=== PATIENT | male | born 1985 | race African-American/Black ===

== ENCOUNTER 2024-03-31 15:41 | Emergency (ER) | payer SELFPAY ==
[~2024-03-31] VITALS: Ht 177.8 cm; Wt 80.0 kg
[2024-03-31 15:45] VITALS: BP 128/72; PULSE 84; RESP 16; TEMP 98.6; O2SAT 100
== END 2024-03-31 17:41 | disposition left against medical advice (07) ==
LOC: ER 15:41
DX: S61.411A Laceration without foreign body of right hand, initial encounter (principal); Z53.21 Procedure and treatment not carried out due to patient leaving prior to being seen by health care provider; X58.XXXA Exposure to other specified factors, initial encounter; Y93.89 Activity, other specified; Y92.89 Other specified places as the place of occurrence of the external cause; Y99.8 Other external cause status